=== PATIENT | female | born 1965 | race Caucasian/White ===

== ENCOUNTER 2019-10-23 22:14 | Inpatient (IN) | payer MEDICAID ==
[~2019-10-23] VITALS: Ht 170.2 cm; Wt 179.0 kg
[~2019-10-23 22:14] MED LIST: CLIN300C8 PO; DOCU-131 PO; OXYC-302 PO
[2019-10-23 23:05] LABS: BASOPHILS # (AUTO) 0.02 x10^3/uL (0-0.1); BASOPHILS % (AUTO) 0 % (0-1); EOSINOPHILS % (AUTO) 0 % (1-7); LYMPHOCYTES # (AUTO) 1.45 x10^3/uL (1-3.4); LYMPHOCYTES % (AUTO) 10 % (22-44); MD NO; MEAN CORPUSCULAR HEMOGLOBIN 28.6 pg (27.0-34.8); MEAN CORPUSCULAR HGB CONC 32.1 g/dL (32.4-35.8); MEAN CORPUSCULAR VOLUME 89.2 fL (80-100); MONOCYTES # (AUTO) 0.57 x10^3/uL (0.2-0.8); MONOCYTES % (AUTO) 4 % (2-9); NEUTROPHILS # (AUTO) 11.97 x10^3/uL (1.8-6.8); NEUTROPHILS % (AUTO) 86 % (42-75); PLATELET COUNT 304 x10^3/uL (130-400); RED BLOOD COUNT 5.05 x10^6/uL (3.82-5.3); RED CELL DISTRIBUTION WIDTH 15.5 % (9.6-15.2)
--- NOTE | 2019-10-23 23:11 | NUR ---
Antoine pate in [facility] - 10/24/19 at 0014 by FLO ASSUMED CARE OF PATIENT. PT SLEEPING AT THIS TIME WITH SITTER OUTSIDE THE ROOM.
[2019-10-23 23:18] LABS: ALANINE AMINOTRANSFERASE 16 U/L (12-78); ALBUMIN 2.8 g/dL (3.4-5.0); ANION GAP 5 mmol/L (5-15); CHLORIDE 106 mmol/L (98-107); CREATININE 0.92 mg/dL (0.55-1.02)
[2019-10-23 23:20] LABS: ALKALINE PHOSPHATASE 84 U/L (45-117); BILIRUBIN,TOTAL 0.5 mg/dL (0.2-1.0); TOTAL PROTEIN 7.2 g/dL (6.4-8.2)
[2019-10-23] MEDS ORDERED: SODIUM CHLORIDE 0.9% 1,000 ML IV ONE (23:45)
[2019-10-24] MEDS ORDERED: ONDANSETRON 2MG/ML, 2ML IVPush ONE
[2019-10-24] MEDS ORDERED: ONDANSETRON 2MG/ML, 2ML IVPush PRN
[2019-10-24] MEDS ORDERED: MORPHINE SULFATE 4 MG/ML, 1ML IVPush PRN ×2
--- NOTE | 2019-10-24 00:14 | NUR ---
REPORT GIVEN TO TAD PAYNE. PATIENT DENIES PAIN/NAUSEA AT THIS TIME. PT OFFERED MEDICATION AND DENIES.
[2019-10-24 00:26] VITALS: BP 142/81
[2019-10-24] MEDS: PIPERACILLIN/TAZO/PMX 3.375GM 50 ML IV SCH ×4 (01:23→19:38)
[2019-10-24] MEDS: SODIUM CHLORIDE 0.9% 1,000 ML IV SCH ×3 (01:23→19:38)
[2019-10-24 08:25] VITALS: BP 117/74
[2019-10-24] MEDS: morphine SULFATE 10 MG/ML, 1ML IVPush PRN (11:38)
[2019-10-24 14:30] VITALS: BP 118/76
[2019-10-24 17:09] LABS: HCG UR SG 1.049 (1.003-1.030)
[2019-10-24 19:04] VITALS: BP 93/58
[2019-10-25 01:01] VITALS: BP 112/71
[2019-10-25] MEDS: PIPERACILLIN/TAZO/PMX 3.375GM 50 ML IV SCH ×2 (02:02→09:06)
[2019-10-25] MEDS: SODIUM CHLORIDE 0.9% 1,000 ML IV SCH ×2 (04:59→16:09)
[2019-10-25 05:17] LABS: BASOPHILS # (AUTO) 0.03 x10^3/uL (0-0.1); BASOPHILS % (AUTO) 0 % (0-1); EOSINOPHILS # (AUTO) 0.22 x10^3/uL (0-0.4); EOSINOPHILS % (AUTO) 3 % (1-7); LYMPHOCYTES # (AUTO) 1.64 x10^3/uL (1-3.4); LYMPHOCYTES % (AUTO) 19 % (22-44); MD NO; MEAN CORPUSCULAR HEMOGLOBIN 28.9 pg (27.0-34.8); MEAN CORPUSCULAR HGB CONC 31.9 g/dL (32.4-35.8); MEAN CORPUSCULAR VOLUME 90.8 fL (80-100); MONOCYTES % (AUTO) 6 % (2-9); NEUTROPHILS # (AUTO) 6.45 x10^3/uL (1.8-6.8); NEUTROPHILS % (AUTO) 73 % (42-75); PLATELET COUNT 249 x10^3/uL (130-400); RED BLOOD COUNT 4.78 x10^6/uL (3.82-5.3); RED CELL DISTRIBUTION WIDTH 15.4 % (9.6-15.2)
[2019-10-25 05:21] LABS: INTERNATIONAL NORMALIZED RATIO 0.94 (0.93-1.1)
[2019-10-25 05:23] LABS: ANION GAP 4 mmol/L (5-15); CALCIUM 7.9 mg/dL (8.5-10.1); CHLORIDE 106 mmol/L (98-107); CREATININE 0.98 mg/dL (0.55-1.02)
[2019-10-25 08:24] VITALS: BP 136/82
[2019-10-25] MEDS: ONDANSETRON 2MG/ML, 2ML IVPush PRN (09:10)
[2019-10-25] MEDS ORDERED: BUPIVACAINE/PF-EPI 0.5% 1:200K ONE (12:10)
[2019-10-25] MEDS ORDERED: CHLORHEXIDINE 15 ML UDC MM ONE (12:35)
[2019-10-25] MEDS ORDERED: FENTANYL PF 250 MCG/5ML ONE (14:26)
[2019-10-25] MEDS ORDERED: LABETALOL 5MG/ML, 20ML IV PRN ×2 (14:30→19:00)
[2019-10-25] MEDS ORDERED: MEPERIDINE/PF 25MG/0.5ML IVPush PRN (14:30)
[2019-10-25] MEDS ORDERED: HYDROmorphone 1 MG/ML, 1ML INJ IVPush PRN (14:30)
[2019-10-25] MEDS ORDERED: OXYcodone 5 MG/5 ML ORAL.SOL UDC PO PRN ×2 (14:30→19:00)
[2019-10-25] MEDS ORDERED: PROMETHAZINE 25 MG/ML, 1ML IVPush PRN ×2 (14:30→19:00)
[2019-10-25] MEDS ORDERED: FENTANYL PF 100 MCG/2ML IV PRN (14:30)
[2019-10-25] MEDS ORDERED: hydrALAzine 20 MG/ML, 1ML IV PRN ×2 (14:30→19:00)
[2019-10-25] MEDS ORDERED: HALOPERIDOL 5 MG/ML IV PRN (14:30)
[2019-10-25] MEDS ORDERED: ONDANSETRON 2MG/ML, 2ML ONE (14:35)
[2019-10-25] MEDS ORDERED: ROCURONIUM 10 MG/ML,10ML ONE (14:35)
[2019-10-25] MEDS ORDERED: SUCCINYLCHOLINE 20 MG/ML, 10ML ONE (14:35)
[2019-10-25] MEDS ORDERED: SUGAMMADEX 200 MG/2 ML IVPush ONE (14:35)
[2019-10-25] MEDS ORDERED: PROPOFOL 10 MG/ML, 20ML ONE (14:35)
[2019-10-25] MEDS ORDERED: CEFAZOLIN 1,000 MG ONE (14:35)
[2019-10-25] MEDS ORDERED: DIPHENHYDRAMINE 50 MG/ML, 1ML IVPush PRN (18:00)
[2019-10-25] MEDS ORDERED: LORazepam 2 MG/ML, 1ML IVPush PRN (18:00)
[2019-10-25] MEDS ORDERED: DIPHENHYDRAMINE 25 MG CAPSULE PO PRN (18:00)
[2019-10-25] MEDS ORDERED: FENTANYL PF 100 MCG/2ML IVPush PRN (18:00)
[2019-10-25] MEDS ORDERED: CALCIUM CARBONATE 500 MG TAB.CHEW PO PRN (18:00)
[2019-10-25] MEDS ORDERED: ONDANSETRON 2MG/ML, 2ML IVPush PRN (18:00)
[2019-10-25] MEDS: IBUPROFEN 800 MG TABLET PO SCH ×2 (18:00→21:58)
[2019-10-25] MEDS ORDERED: D5%-0.45NACL+KCL 20MEQ 1,000 ML IV SCH (18:15)
[2019-10-25] MEDS ORDERED: FENTANYL PF 100 MCG/2ML ONE (18:30)
[2019-10-25] MEDS ORDERED: OXYcodone 5 MG/5 ML ORAL.SOL UDC ONE (18:30)
[2019-10-25] MEDS: FENTANYL PF 100 MCG/2ML IV PRN ×2 (18:32→19:00)
[2019-10-25] MEDS ORDERED: PROMETHAZINE 25 MG/ML, 1ML ONE (18:41)
[2019-10-25] MEDS ORDERED: HYDROmorphone 1 MG/ML, 1ML INJ ONE (19:08)
[2019-10-25] MEDS: HYDROmorphone 1 MG/ML, 1ML INJ IVPush PRN ×2 (19:08→19:22)
[2019-10-25] MEDS: PIPERACILLIN/TAZO/PMX 3.375GM 50 ML IVPB SCH (21:54)
[2019-10-25] MEDS: morphine SULFATE 10 MG/ML, 1ML IVPush PRN (22:10)
[2019-10-25] MEDS: OXYcodone IR 5MG TABLET PO PRN (22:10)
[2019-10-25 23:03] VITALS: BP 120/80
[2019-10-26] MEDS: ACETAMINOPHEN 325 MG TABLET PO PRN ×2 (01:36→23:53)
[2019-10-26] MEDS: OXYcodone IR 5MG TABLET PO PRN ×3 (01:36→23:54)
[2019-10-26] MEDS: PIPERACILLIN/TAZO/PMX 3.375GM 50 ML IVPB SCH ×4 (03:59→22:30)
[2019-10-26 04:28] LABS: BASOPHILS # (AUTO) 0.01 x10^3/uL (0-0.1); BASOPHILS % (AUTO) 0 % (0-1); EOSINOPHILS % (AUTO) 0 % (1-7); LYMPHOCYTES # (AUTO) 0.86 x10^3/uL (1-3.4); LYMPHOCYTES % (AUTO) 6 % (22-44); MD NO; MEAN CORPUSCULAR HEMOGLOBIN 29.2 pg (27.0-34.8); MEAN CORPUSCULAR HGB CONC 32.3 g/dL (32.4-35.8); MEAN CORPUSCULAR VOLUME 90.3 fL (80-100); MEAN PLATELET VOLUME 7.7 fL (7.4-10.4); MONOCYTES # (AUTO) 1.09 x10^3/uL (0.2-0.8); MONOCYTES % (AUTO) 7 % (2-9); NEUTROPHILS # (AUTO) 13.77 x10^3/uL (1.8-6.8); NEUTROPHILS % (AUTO) 88 % (42-75); PLATELET COUNT 230 x10^3/uL (130-400); RED BLOOD COUNT 4.48 x10^6/uL (3.82-5.3); RED CELL DISTRIBUTION WIDTH 14.8 % (9.6-15.2)
[2019-10-26 04:30] LABS: ALBUMIN 2.4 g/dL (3.4-5.0); ANION GAP 3 mmol/L (5-15); CALCIUM 7.5 mg/dL (8.5-10.1); CHLORIDE 106 mmol/L (98-107); CREATININE 0.79 mg/dL (0.55-1.02)
[2019-10-26 04:40] VITALS: BP 117/81
[2019-10-26 06:36] VITALS: BP 120/69
[2019-10-26] MEDS: IBUPROFEN 800 MG TABLET PO SCH ×3 (08:42→22:30)
[2019-10-26] MEDS: ENOXAPARIN 30 MG/0.3 ML SQ SCH ×2 (08:43→22:30)
[2019-10-26] MEDS: ONDANSETRON 2MG/ML, 2ML IVPush PRN (10:03)
[2019-10-26] MEDS: SODIUM CHLORIDE 0.9% 1,000 ML IV SCH (10:56)
[2019-10-26] MEDS ORDERED: METOCLOPRAMIDE 5 MG/ML, 2ML IVPush PRN (11:30)
[2019-10-26 13:30] VITALS: BP 116/76
[2019-10-26 18:30] VITALS: BP 117/74
[2019-10-27 00:36] VITALS: BP 125/77
[2019-10-27 05:54] LABS: MEAN CORPUSCULAR HEMOGLOBIN 29.5 pg (27.0-34.8); MEAN CORPUSCULAR HGB CONC 32.7 g/dL (32.4-35.8); MEAN CORPUSCULAR VOLUME 90.4 fL (80-100); MEAN PLATELET VOLUME 7.8 fL (7.4-10.4); PLATELET COUNT 201 x10^3/uL (130-400); RED BLOOD COUNT 4.14 x10^6/uL (3.82-5.3); RED CELL DISTRIBUTION WIDTH 14.8 % (9.6-15.2)
[2019-10-27 05:58] LABS: ALBUMIN 2.3 g/dL (3.4-5.0); ANION GAP 5 mmol/L (5-15); CALCIUM 7.8 mg/dL (8.5-10.1); CHLORIDE 104 mmol/L (98-107)
[2019-10-27 06:01] LABS: CREATININE 0.64 mg/dL (0.55-1.02)
[2019-10-27 06:32] LABS: BASOPHILS # (AUTO) 0.03 x10^3/uL (0-0.1); BASOPHILS % (AUTO) 0 % (0-1); EOSINOPHILS # (AUTO) 0.18 x10^3/uL (0-0.4); EOSINOPHILS % (AUTO) 1 % (1-7); LYMPHOCYTES # (AUTO) 1.16 x10^3/uL (1-3.4); LYMPHOCYTES % (AUTO) 9 % (22-44); MD SCAN; MONOCYTES # (AUTO) 0.78 x10^3/uL (0.2-0.8); MONOCYTES % (AUTO) 6 % (2-9); NEUTROPHILS # (AUTO) 11.05 x10^3/uL (1.8-6.8); NEUTROPHILS % (AUTO) 84 % (42-75)
[2019-10-27] MEDS: PIPERACILLIN/TAZO/PMX 3.375GM 50 ML IVPB SCH ×3 (06:32→18:28)
[2019-10-27 06:41] VITALS: BP 122/77
[2019-10-27] MEDS: IBUPROFEN 800 MG TABLET PO SCH ×3 (08:32→21:43)
[2019-10-27] MEDS: ENOXAPARIN 30 MG/0.3 ML SQ SCH ×2 (08:32→21:43)
[2019-10-27] MEDS: PSYLLIUM PACKET PO SCH (10:09)
[2019-10-27] MEDS ORDERED: FUROSEMIDE 20 MG/2 ML IV ONE (10:30)
[2019-10-27] MEDS ORDERED: POTASSIUM CHLORIDE 20 MEQ TAB.ER.PRT PO ONE (10:30)
[2019-10-27] MEDS ORDERED: BISACODYL 10 MG SUPP PR PRN (10:30)
[2019-10-27] MEDS: OXYcodone IR 5MG TABLET PO PRN ×2 (10:33→21:44)
[2019-10-27] MEDS: SENNA/DOCUSATE TABLET PO SCH (10:43)
[2019-10-27 13:50] VITALS: BP 123/79
[2019-10-27 18:38] VITALS: BP 111/72
[2019-10-27] MEDS: ACETAMINOPHEN 325 MG TABLET PO PRN (21:43)
[2019-10-28] MEDS: PIPERACILLIN/TAZO/PMX 3.375GM 50 ML IVPB SCH ×3 (01:39→13:32)
[2019-10-28 01:44] VITALS: BP 127/80
[2019-10-28 04:08] LABS: ALBUMIN 2.2 g/dL (3.4-5.0); ANION GAP 6 mmol/L (5-15); CHLORIDE 105 mmol/L (98-107)
[2019-10-28 06:40] LABS: MEAN CORPUSCULAR HEMOGLOBIN 29.7 pg (27.0-34.8); MEAN CORPUSCULAR HGB CONC 32.9 g/dL (32.4-35.8); MEAN CORPUSCULAR VOLUME 90.4 fL (80-100); MEAN PLATELET VOLUME 7.9 fL (7.4-10.4); PLATELET COUNT 202 x10^3/uL (130-400); RED CELL DISTRIBUTION WIDTH 15.1 % (9.6-15.2)
[2019-10-28 08:00] VITALS: BP 119/76
[2019-10-28 08:01] LABS: MD SCAN
[2019-10-28] MEDS: SENNA/DOCUSATE TABLET PO SCH (08:25)
[2019-10-28] MEDS: PSYLLIUM PACKET PO SCH (08:25)
[2019-10-28] MEDS: IBUPROFEN 800 MG TABLET PO SCH ×2 (08:26→15:26)
[2019-10-28] MEDS: ENOXAPARIN 30 MG/0.3 ML SQ SCH (08:26)
[2019-10-28] MEDS ORDERED: FUROSEMIDE 20 MG/2 ML IV SCH (11:00)
[2019-10-28] MEDS ORDERED: FUROSEMIDE 20 MG/2 ML IV ONE (11:00)
[2019-10-28] MEDS ORDERED: POTASSIUM CHLORIDE 20 MEQ TAB.ER.PRT PO ONE (11:00)
[2019-10-28 12:36] VITALS: BP 115/69
[2019-10-28] MEDS ORDERED: SENN-31 PO (14:12)
[2019-10-28] MEDS ORDERED: AMOX1TAB64 PO (14:12)
[2019-10-28] MEDS ORDERED: ONDA4TAB7 PO (14:12)
[2019-10-28] MEDS ORDERED: OXYC5TAB3 PO (14:12)
== END 2019-10-28 16:15 | disposition home or self-care (01) | DRG 228 ==
LOC: ED 22:47 → EDIP 23:45 → 3N 10-24 00:22 → 4NE 10-25 20:13
PROVIDERS: ADMIT Internal Medicine; ATTEND Hospitalist
PROC: 0WJF4ZZ Inspection of Abdominal Wall, Percutaneous Endoscopic Approach (ICD-10-PCS; 2019-10-25)
PROC: 8E0W0CZ Robotic Assisted Procedure of Trunk Region, Open Approach (ICD-10-PCS; 2019-10-25)
PROC: 0WUF0JZ Supplement Abdominal Wall with Synthetic Substitute, Open Approach (ICD-10-PCS; principal; 2019-10-25 15:15)
DX: K42.0 Umbilical hernia with obstruction, without gangrene (principal); J96.01 Acute respiratory failure with hypoxia; D72.829 Elevated white blood cell count, unspecified; E66.01 Morbid (severe) obesity due to excess calories; E87.70 Fluid overload, unspecified; G47.33 Obstructive sleep apnea (adult) (pediatric); Z80.0 Family history of malignant neoplasm of digestive organs; Z88.8 Allergy status to other drugs, medicaments and biological substances; J98.11 Atelectasis; K43.6 Other and unspecified ventral hernia with obstruction, without gangrene; Z68.44 Body mass index [BMI] 60.0-69.9, adult
CPT/HCPCS: 36415; 71045; 74018; 80048; 80053; 81025; 82040; 83690; 85025; 85610; 88302; 88305; 93306; G0378; J0690; J1170; J1650; J2405; J2543; J2550; J2704; J3010; C1781; J0330; J1940; J2270; J2765; J3480; J7030

== ENCOUNTER 2019-11-28 15:36 | Inpatient (IN) | payer MEDICAID ==
[~2019-11-28] VITALS: Ht 170.2 cm; Wt 160.2 kg
[2019-11-28 15:19] VITALS: BP 120/84
[~2019-11-28 15:36] MED LIST changes: +AMOX1TAB64 PO; +CHLORHEXIDINE 15 ML UDC MM STA; +LACTATED RINGERS 1,000 ML IV SCH; +ONDA4TAB7 PO; +OXYC5TAB3 PO; +SENN-31 PO
[2019-11-28] MEDS ORDERED: CHLORHEXIDINE 15 ML UDC ONE (15:43)
[2019-11-28] MEDS ORDERED: [UNRECOGNIZED DRUG - REMARK] (15:56)
[2019-11-28] MEDS ORDERED: FENTANYL PF 100 MCG/2ML ONE (16:42)
[2019-11-28] MEDS ORDERED: MIDAZOLAM 1 MG/ML, 2ML ONE (16:43)
[2019-11-28] MEDS ORDERED: PROPOFOL 10 MG/ML, 20ML ONE (16:46)
[2019-11-28] MEDS ORDERED: DEXAMETHASONE 4 MG/ML, 1ML ONE (16:46)
[2019-11-28] MEDS ORDERED: CEFAZOLIN 1,000 MG ONE (16:46)
[2019-11-28] MEDS ORDERED: SUCCINYLCHOLINE 20 MG/ML, 10ML ONE (16:46)
[2019-11-28] MEDS ORDERED: GLYCOPYRROLATE 0.2MG/1ML, 5ML ONE (16:46)
[2019-11-28] MEDS ORDERED: NEOSTIGMINE 1 MG/ML, 10ML ONE (16:46)
[2019-11-28] MEDS ORDERED: ROCURONIUM 10MG/ML,5ML ONE (16:46)
[2019-11-28] MEDS ORDERED: ONDANSETRON 2MG/ML, 2ML ONE (16:46)
[2019-11-28] MEDS ORDERED: FENTANYL PF 100 MCG/2ML IV PRN (17:00)
[2019-11-28] MEDS ORDERED: PROMETHAZINE 25 MG SUPP PR PRN (17:00)
[2019-11-28] MEDS ORDERED: OXYcodone 5 MG/5 ML ORAL.SOL UDC PO PRN (17:00)
[2019-11-28] MEDS ORDERED: LABETALOL 5MG/ML, 20ML IV PRN (17:00)
[2019-11-28] MEDS ORDERED: HYDROmorphone 1 MG/ML, 1ML INJ IVPush PRN ×2 (17:00→17:30)
[2019-11-28] MEDS ORDERED: PROMETHAZINE 25 MG/ML, 1ML IVPush PRN (17:00)
[2019-11-28] MEDS ORDERED: ACETAMINOPHEN 325 MG TABLET PO PRN (17:00)
[2019-11-28] MEDS ORDERED: ONDANSETRON 2MG/ML, 2ML IVPush PRN ×2 (17:00→17:30)
[2019-11-28] MEDS ORDERED: hydrALAzine 20 MG/ML, 1ML IV PRN (17:00)
[2019-11-28] MEDS ORDERED: D5%-0.45NACL+KCL 20MEQ 1,000 ML IV SCH (17:16)
[2019-11-28] MEDS ORDERED: TRAZODONE 50MG TABLET PO PRN (17:30)
[2019-11-28] MEDS ORDERED: CALCIUM CARBONATE 500 MG TAB.CHEW PO PRN (17:30)
[2019-11-28] MEDS ORDERED: OXYcodone IR 5MG TABLET PO PRN (17:30)
[2019-11-28] MEDS ORDERED: CEFTRIAXONE 2 GM in SODIUM CHLORIDE 0.9% 50 ML IVPB SCH (17:30)
[2019-11-28] MEDS: ENOXAPARIN 30 MG/0.3 ML SQ SCH (17:30)
[2019-11-28] MEDS ORDERED: LORazepam 2 MG/ML, 1ML IVPush PRN (17:30)
[2019-11-28] MEDS ORDERED: ACETAMINOPHEN 650 MG/20.3 ML UDC ONE (18:16)
[2019-11-28] MEDS ORDERED: ACETAMINOPHEN 325 MG TABLET ONE (18:16)
[2019-11-28] MEDS ORDERED: DIPHENHYDRAMINE 50 MG/ML, 1ML IVPush PRN (19:00)
[2019-11-28 19:05] VITALS: BP 124/84
[2019-11-28] MEDS: IBUPROFEN 800 MG TABLET PO SCH (20:40)
[2019-11-29 00:47] VITALS: BP 142/78
[2019-11-29 03:15] VITALS: BP 127/77
[2019-11-29 04:48] LABS: BASOPHILS % (AUTO) 0 % (0-1); EOSINOPHILS % (AUTO) 0 % (1-7); LYMPHOCYTES # (AUTO) 0.85 x10^3/uL (1-3.4); LYMPHOCYTES % (AUTO) 9 % (22-44); MD NO; MEAN CORPUSCULAR HEMOGLOBIN 27.9 pg (27.0-34.8); MEAN CORPUSCULAR HGB CONC 31.8 g/dL (32.4-35.8); MEAN CORPUSCULAR VOLUME 87.7 fL (80-100); MEAN PLATELET VOLUME 8.2 fL (7.4-10.4); MONOCYTES # (AUTO) 0.35 x10^3/uL (0.2-0.8); MONOCYTES % (AUTO) 4 % (2-9); NEUTROPHILS # (AUTO) 8.03 x10^3/uL (1.8-6.8); NEUTROPHILS % (AUTO) 87 % (42-75); PLATELET COUNT 380 x10^3/uL (130-400); RED BLOOD COUNT 4.56 x10^6/uL (3.82-5.3); RED CELL DISTRIBUTION WIDTH 15.2 % (9.6-15.2)
[2019-11-29 04:57] LABS: ALBUMIN 2.5 g/dL (3.4-5.0); ANION GAP 6 mmol/L (5-15); CALCIUM 8.7 mg/dL (8.5-10.1); CHLORIDE 107 mmol/L (98-107)
[2019-11-29 04:59] LABS: CREATININE 0.81 mg/dL (0.55-1.02)
[2019-11-29 07:04] VITALS: BP_SYST 100; BP_SYST 127; BP_DIAS 64; BP_DIAS 74
[2019-11-29] MEDS: ENOXAPARIN 30 MG/0.3 ML SQ SCH (08:02)
[2019-11-29] MEDS: IBUPROFEN 800 MG TABLET PO SCH (08:02)
[2019-11-29] MEDS ORDERED: OXYC5TAB3 PO (10:10)
[2019-11-29 14:00] VITALS: BP 142/83
== END 2019-11-29 16:05 | disposition home or self-care (01) | DRG 711 ==
LOC: OR 15:36 → ORIP 17:56 → 4NE 18:34 → DCLOUNGE 11-29 15:58
PROVIDERS: ADMIT Surgery; ATTEND Surgery
PROC: 0W9F0ZZ Drainage of Abdominal Wall, Open Approach (ICD-10-PCS; principal; 2019-11-28 17:00)
DX: T81.41XA Infection following a procedure, superficial incisional surgical site, initial encounter (principal); Z88.8 Allergy status to other drugs, medicaments and biological substances
CPT/HCPCS: 36415; 80048; 82040; 84703; 85025; 87070; 87075; 87077; 87205; 87635; G0378; J0690; J0696; J1100; J1650; J2250; J2405; J2704; J2710; J3010; J0330; J3480